=== PATIENT | female | born 1950 | race Caucasian/White ===

== ENCOUNTER 2017-09-04 12:13 | Day surgery (SDC) | payer MEDICARE, OTHER ==
[~2017-09-04] VITALS: Ht 170.2 cm; Wt 62.4 kg
[~2017-09-04 12:13] MED LIST: ABAC300; ACYC400 PO; ALBU90OI INH; EPIN.3I IM; HYDACE5 PO; LEVO750 PO; LEVSOD75 PO; LEVSOD88 PO; Norco 5-325 Ta1 EACH PO; Norco 7.5-3251 EACH PO; PRED20 PO; RANI150 PO; VARE1; Ventolin Soln3 ML INH; Zofran4 MG PO
== END 2017-09-04 14:46 | disposition home or self-care (01) ==
LOC: ORSCSDS 12:13
PROVIDERS: Surgery
PROC: 0DBH8ZX Excision of Cecum, Via Natural or Artificial Opening Endoscopic, Diagnostic (ICD-10-PCS; principal; 2017-09-04 13:45)
PROC: 0DBK8ZX Excision of Ascending Colon, Via Natural or Artificial Opening Endoscopic, Diagnostic (ICD-10-PCS; principal; 2017-09-04 13:45)
DX: Z12.11 Encounter for screening for malignant neoplasm of colon (principal); D12.0 Benign neoplasm of cecum; D12.2 Benign neoplasm of ascending colon; K57.30 Diverticulosis of large intestine without perforation or abscess without bleeding; E03.9 Hypothyroidism, unspecified; Z87.891 Personal history of nicotine dependence; Z79.899 Other long term (current) drug therapy
CPT/HCPCS: 88305; J7120

== ENCOUNTER 2018-01-14 00:14 | Emergency (ER) | payer MEDICARE, OTHER ==
[~2018-01-14] VITALS: Ht 170.2 cm; Wt 62.6 kg
== END 2018-01-14 02:23 | disposition home or self-care (01) ==
LOC: ER 00:14
DX: L50.9 Urticaria, unspecified (principal); F17.200 Nicotine dependence, unspecified, uncomplicated; Z88.5 Allergy status to narcotic agent; Z79.899 Other long term (current) drug therapy
CPT/HCPCS: 99283; J1100

== ENCOUNTER 2020-10-02 11:45 | Emergency (ER) | payer MEDICARE, OTHER ==
[~2020-10-02] VITALS: Ht 170.2 cm; Wt 60.3 kg
[2020-10-02] MEDS ORDERED: Mupirocin22 GM TOP (15:00)
== END 2020-10-02 15:11 | disposition home or self-care (01) ==
LOC: ER 11:45
DX: L03.011 Cellulitis of right finger (principal); F17.200 Nicotine dependence, unspecified, uncomplicated; Z88.5 Allergy status to narcotic agent; Z79.899 Other long term (current) drug therapy
CPT/HCPCS: 99282

== ENCOUNTER → 2021-05-04 | Outpatient (CLI) | payer MEDICARE, OTHER ==
[~2021-05-04] MED LIST changes: +Mupirocin22 GM TOP
== END ==
LOC: LAB SHORT 11:05 → LAB 11:05
DX: D48.5 Neoplasm of uncertain behavior of skin (principal); Z88.5 Allergy status to narcotic agent
CPT/HCPCS: 88305

== ENCOUNTER → 2021-06-10 | Outpatient (CLI) | payer MEDICARE, OTHER | LOC: LAB 14:53 → LAB SHORT 14:53 | DX: C44.729 Squamous cell carcinoma of skin of left lower limb, including hip (principal) | CPT/HCPCS: 88305 ==

== ENCOUNTER → 2021-11-26 | Outpatient (CLI) | payer MEDICARE, OTHER | END | disposition home or self-care (01) | LOC: LAB 14:08 → LAB SHORT 14:08 | DX: R05.9 Cough, unspecified (principal) | CPT/HCPCS: 83880 ==

== ENCOUNTER 2023-08-04 06:32 | Emergency (ER) | payer MEDICARE, OTHER ==
[~2023-08-04] VITALS: Ht 170.2 cm; Wt 55.3 kg
[2023-08-04 08:12] LABS: BASOPHILS ABSOLUTE AUTO 0.09 K/mm3 (0.00-0.23); BASOPHILS PERCENT AUTO 1 % (0-2); EOSINOPHILS ABSOLUTE AUTO 0.02 K/mm3 (0.00-0.68); EOSINOPHILS PERCENT AUTO 0 % (0-6); Hematocrit 43.7 % (33.0-51.0); Hemoglobin 14.7 g/dL (11.5-16.0); IMMATURE GRAN ABSOLUTE AUTO 0.02 K/mm3 (0.00-0.10); IMMATURE GRAN PERCENT AUTO 0 % (0-1); LYMPHOCYTES ABSOLUTE AUTO 0.67 K/mm3 (0.84-5.20); LYMPHOCYTES PERCENT AUTO 9 % (21-46); MONOCYTES ABSOLUTE AUTO 1.21 K/mm3 (0.16-1.47); MONOCYTES PERCENT AUTO 16 % (4-13); Mean Corpuscular HGB Conc 33.6 g/dL (31.5-36.5); Mean Corpuscular Volume 95 fL (80-100); Mean Platelet Volume 8.7 fL (9.1-12.4); NEUTROPHILS ABSOLUTE AUTO 5.51 K/mm3 (1.96-9.15); NEUTROPHILS PERCENT AUTO 73 % (41-73); Platelet Count 262 K/mm3 (150-400); RDW Coefficient Variation 13.3 % (11.7-14.2); RDW Standard Deviation 47.5 fL (35.1-46.3); Red Blood Cell Count 4.59 M/mm3 (3.80-5.20); White Blood Cell Count 7.52 K/mm3 (4.00-11.30)
[2023-08-04 08:44] LABS: Albumin, Blood 3.9 g/dL (3.4-5.0); Albumin/Globulin Ratio 1.1 (0.8-1.8); Bilirubin, Total 0.5 mg/dL (0.1-1.0); Bun/Creatinine Ratio 22.8 (12.0-20.0); Calcium, Blood 8.9 mg/dL (8.5-10.1); Creatinine, Blood 0.75 mg/dL (0.40-1.00); Globulin, Blood 3.5 g/dL (2.2-4.0); Potassium, Blood 4.3 mmol/L (3.5-5.5); Total Protein, Blood 7.4 g/dL (6.4-8.2)
[2023-08-04 09:15] VITALS: BP 125/65
[2023-08-04] MEDS ORDERED: LISI20 PO (16:34)
== END 2023-08-04 09:16 | disposition home or self-care (01) ==
LOC: ER 06:32
PROVIDERS: Physician Assistant
DX: J44.1 Chronic obstructive pulmonary disease with (acute) exacerbation (principal); F45.21 Hypochondriasis; I10 Essential (primary) hypertension; E03.9 Hypothyroidism, unspecified; F17.200 Nicotine dependence, unspecified, uncomplicated; Z79.899 Other long term (current) drug therapy; Z88.5 Allergy status to narcotic agent
CPT/HCPCS: 71046; 80053; 85025; 99283-25

== ENCOUNTER 2023-08-04 16:11 | Inpatient (IN) | payer MEDICARE, OTHER ==
[~2023-08-04] VITALS: Ht 162.6 cm; Wt 59.2 kg
[2023-08-04 16:29] LABS: Base Excess Venous 0.6 mmol/L; Bicarbonate Venous 23.6 mmol/L (24.0-30.0); PCO2 Venous 48.5 mmHg (38-42); pH Blood Venous 7.34 (7.34-7.37)
[2023-08-04] MEDS ORDERED: LISI20 PO (16:34)
[2023-08-04 17:21] LABS: Influenza A, PCR NEGATIVE (NEGATIVE); Influenza B, PCR NEGATIVE (NEGATIVE); SARS-Cov-2 (COVID-19) PCR, MMC NEGATIVE (NEGATIVE)
[2023-08-04 17:45] LABS: Resp Syncytial Virus, PCR POSITIVE (NEGATIVE)
[2023-08-04 21:01] VITALS: BP 123/101
[2023-08-04 23:29] VITALS: BP 167/126
--- NOTE | 2023-08-05 00:09 | NUR ---
LATE NOTE. PT ARRIVED ON UNIT @ 2029. AOX4, PLEASANT, COOPERATIVE WITH CARE. STRONG/STEADY GAIT WITH SAFE INDEPENDENT TRANSFER WITHIN ROOM. 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 WAS SATURATING WELL ON 3.5 L 02 VIA NC UPON ARRIVAL. MAINTAINED AT THIS STATE UNTIL ABOUT ~2345 WHEN PT STARTED TO COMPLAIN OF INCREASING SOB. DESATURATED INTO MID 80s. CALLED RT TANIKA WHO PLACED PT ON BIPAP ON "BASIC SETTINGS". SINCE THAT TIME PT HAS BEEN MAINTAINING SATURATIONS >92% AND IS RESTING COMFORTABLY IN BED. RSV POSITIVE, CONTACT PRECAUTIONS IN PLACE. ADMISSION ASSESSMENT, MEDICATION RECONCILIATION COMPLETED. BED LOCKED ON LOWEST POSITION. CALL LIGHT HAS BEEN LEFT WITHIN REACH AND PT HAS BEEN USING APPROPRIATELY THUS FAR. CONTINUING TO MONITOR.
[2023-08-05 04:22] LABS: BASOPHILS ABSOLUTE AUTO 0.03 K/mm3 (0.00-0.23); BASOPHILS PERCENT AUTO 0 % (0-2); EOSINOPHILS PERCENT AUTO 0 % (0-6); Hematocrit 38.8 % (33.0-51.0); Hemoglobin 13.2 g/dL (11.5-16.0); IMMATURE GRAN ABSOLUTE AUTO 0.03 K/mm3 (0.00-0.10); IMMATURE GRAN PERCENT AUTO 0 % (0-1); LYMPHOCYTES ABSOLUTE AUTO 0.49 K/mm3 (0.84-5.20); LYMPHOCYTES PERCENT AUTO 5 % (21-46); MONOCYTES ABSOLUTE AUTO 0.33 K/mm3 (0.16-1.47); MONOCYTES PERCENT AUTO 3 % (4-13); Mean Corpuscular HGB 32.2 pg (26.0-34.0); Mean Corpuscular Volume 95 fL (80-100); Mean Platelet Volume 8.8 fL (9.1-12.4); NEUTROPHILS ABSOLUTE AUTO 8.89 K/mm3 (1.96-9.15); NEUTROPHILS PERCENT AUTO 91 % (41-73); Platelet Count 228 K/mm3 (150-400); RDW Coefficient Variation 13.3 % (11.7-14.2); White Blood Cell Count 9.77 K/mm3 (4.00-11.30)
[2023-08-05 04:43] LABS: Albumin, Blood 3.5 g/dL (3.4-5.0); Bilirubin, Total 0.4 mg/dL (0.1-1.0); Bun/Creatinine Ratio 28.8 (12.0-20.0); Calcium, Blood 8.9 mg/dL (8.5-10.1); Creatinine, Blood 0.76 mg/dL (0.40-1.00); Globulin, Blood 3.4 g/dL (2.2-4.0); Potassium, Blood 4.6 mmol/L (3.5-5.5); Total Protein, Blood 6.9 g/dL (6.4-8.2)
[2023-08-05 04:48] VITALS: BP 109/80
--- NOTE | 2023-08-05 06:35 | NUR ---
SHIFT SUMMARY. PT HAS BEEN ON NC FOR PAST SEVERAL HOURS. NOW ON 7 L O2 VIA NC AND HAS BEEN MAINTAINING SATS >92% FOR THE MOST PART OUTSIDE OF COUGHING FITS AND AMBULATION. CALLS APPROPRIATELY FOR ASSISTANCE. PT COMPLAINED OF NECK/SHOULDER PAIN THIS MORNING RELATED TO COUGHING FITS. CALLED RESIDENT WHO ORDERED ONE TIME DOSE OF FENTANYL 25 MCG. ADMINISTERED AND PT REPORTS PAIN HAS BEEN MUCH BETTER SINCE. SPUTUM SAMPLE COLLECTED AND TO BE PROCESSED AND SENT TO LAB FOR ANALYSIS. BED IS LOCKED IN LOWEST POSITION. CALL LIGHT LEFT WITHIN REACH. CONTINUING TO MONITOR.
[2023-08-05 07:14] VITALS: BP 100/77
--- NOTE | 2023-08-05 07:34 | NUR ---
CARE OF PT ASSUMED AT 0700. JUST PRIOR TO BEDSIDE REPORT PT USED CALL LIGHT TO C/O SOB. AT BEDSIDE PT RESP 30'S, SHALLOW, LABORED. LUNGS CLEAR BUT TIGHT/DIMINISHED T/O, WORSE TO LEFT SIDE. RT CALLED, PT PLACED TO CPAP 10, 40% FIO2. RT STARTED UDN TREATMENT THROUGH CPAP. PT SATS >90%, PT STATED SHE COULD BREATH BETTER AFTER 5MIN, APPEARS MORE RELAXED.
[2023-08-05 08:29] VITALS: BP 135/70
--- NOTE | 2023-08-05 08:37 | NUR ---
BURDEN IN TO SEE PT, FULL UPDATE GIVEN. DIET ORDERED.
[2023-08-05 11:38] VITALS: BP 130/65
[2023-08-05 16:34] VITALS: BP 127/66
--- NOTE | 2023-08-05 18:55 | NUR ---
PT HAS IMPROVED SLIGHTLY OVER SHIFT. PT REQUIRES N/C AT 7L TO KEEP SATS BETWEEN 90-93%. PT HAS REQUIRED CPAP 10 40% SEVERAL TIMES THIS SHIFT AND WHILE SLEEPING. PT ROCÍO CPAP WELL. PT ABLE TO TAKE LONG BREAKS UP TO 2HRS OFF OF CPAP, PT ABLE TO EAT AND VISIT. PT DOES HAVE TACHYPNEA AND DYSPNEA WITH PROLONGED SPEECH.
[2023-08-05 19:28] VITALS: BP 131/103
[2023-08-06] VITALS (7 sets, daily range): BP systolic 111–147; BP diastolic 52–89
[2023-08-06 04:01] LABS: BASOPHILS ABSOLUTE AUTO 0.04 K/mm3 (0.00-0.23); BASOPHILS PERCENT AUTO 0 % (0-2); EOSINOPHILS ABSOLUTE AUTO 0.04 K/mm3 (0.00-0.68); EOSINOPHILS PERCENT AUTO 0 % (0-6); Hematocrit 38.4 % (33.0-51.0); Hemoglobin 12.7 g/dL (11.5-16.0); IMMATURE GRAN ABSOLUTE AUTO 0.13 K/mm3 (0.00-0.10); IMMATURE GRAN PERCENT AUTO 1 % (0-1); LYMPHOCYTES ABSOLUTE AUTO 0.93 K/mm3 (0.84-5.20); LYMPHOCYTES PERCENT AUTO 5 % (21-46); MONOCYTES ABSOLUTE AUTO 1.16 K/mm3 (0.16-1.47); MONOCYTES PERCENT AUTO 6 % (4-13); Mean Corpuscular HGB 31.7 pg (26.0-34.0); Mean Corpuscular HGB Conc 33.1 g/dL (31.5-36.5); Mean Corpuscular Volume 96 fL (80-100); NEUTROPHILS ABSOLUTE AUTO 17.42 K/mm3 (1.96-9.15); NEUTROPHILS PERCENT AUTO 88 % (41-73); Platelet Count 224 K/mm3 (150-400); RDW Coefficient Variation 13.3 % (11.7-14.2); RDW Standard Deviation 47.5 fL (35.1-46.3); Red Blood Cell Count 4.01 M/mm3 (3.80-5.20); White Blood Cell Count 19.72 K/mm3 (4.00-11.30)
[2023-08-06 04:24] LABS: Albumin, Blood 3.5 g/dL (3.4-5.0); Anion Gap 3 mmol/L (6-16); Blood Urea Nitrogen 25 mg/dL (8-24); Bun/Creatinine Ratio 33.2 (12.0-20.0); CO2, Blood 29 mmol/L (21-32); Calcium, Blood 8.9 mg/dL (8.5-10.1); Chloride, Blood 102 mmol/L (98-108); Creatinine, Blood 0.75 mg/dL (0.40-1.00); Glomerular Filtration Rate 84 (60-); Glucose, Blood 144 mg/dL (70-99); Phosphorus, Blood 3.6 mg/dL (2.5-4.9); Potassium, Blood 4.7 mmol/L (3.5-5.5); Sodium, Blood 134 mmol/L (136-145)
--- NOTE | 2023-08-06 04:39 | NUR ---
SHIFT SUMMARY. PT HAS BEEN DOING WELL THIS SHIFT, NO ACUTE CHANGES. REMAINS AOX4, PLEASANT, COOPERATIVE WITH CARE. PT WAS EXPERIENCING SOME ANXIETY EARLY IN SHIFT RELATED TO CPAP AND BEING UNABLE TO SLEEP. NOTIFIED RESIDENT WHO ORDERED ONE TIME DOSE OF 100 MG TRAZADONE AND PT HAS BEEN ABLE TO SLEEP THROUGH MOST OF SHIFT SINCE. EASILY AROUSABLE FOR CARE AND QUICKLY FALLS BACK TO SLEEP. HAS BEEN MAINTAINING SATURATIONS ON CPAP >92% THROUGHOUT EVENING AND MORNING. NO PAIN REPORTED THIS SHIFT. INDEPENDENT TO COMMODE AND CALLS APPROPRIATELY FOR ANY REQUIRED ASSISTANCE. ABLE TO MAKE NEEDS KNOWN. TELE ON THROUGHOUT SHIFT AND HAS BEEN RUNNING SINUS RHYTHM WITH NO EVENTS THUS FAR. BEC LOCKED IN LOWEST POSITION. CALL LIGHT LEFT WITHIN REACH.
--- NOTE | 2023-08-06 17:53 | NUR ---
SHIFT SUMMARY PT IS A&OX4, IND IN THE ROOM, SR ON TELE, BP STABLE, AND SHE CALLS APPROPRAITELY. SHE HAS BEEN ON 4L NC ALL SHIFT, AND WHEN SHE TOOK A NAP FOR AN HOUR SHE WAS ON 5L NC. THE PT HAS HAD NO COMPLAINTS OR EVENTS THIS SHIFT. FIRE IGNITION RISK HAS BEEN ASSESSED AND HER WAS UPDATED ON HER CARE. SEE NOTED FORE ANYMORE UPDATES.
--- NOTE | 2023-08-06 21:59 | NUR ---
ASSUMPTION OF CARE AFTER RECEIVING REPORT FROM MELITA RN, THIS RN ASSUMED CARE AT APPROX 1915. PATIENT IS ALERT AND ORIENTED X4. INDEPENDENT IN ROOM, USES CALL LIGHT APPROPRIATELY TO COMMUNICATE NEEDS. TELEMETRY SHOWING SINUS, SINUS TACH 90's-110's. BP MILDLY ELEVATED THIS EVENING, SBP 140's. DENIES CHEST PAIN, PRESSURE. IS CURRENTLY ON 4L VIA NASAL CANNULA, SATS >90%. EXPERIENCES DYSPNEA WITH MOBILITY, EASES WITH REST. OCCASSIONAL, NONPRODUCTIVE COUGH NOTED. DISCUSSED WITH RT, PLAN TO IMPLEMENT CPAP NEEDED WHILE SLEEPING. CALL LIGHT IN REACH.
[2023-08-07 03:48] VITALS: BP 137/72
[2023-08-07 04:41] LABS: BASOPHILS ABSOLUTE AUTO 0.02 K/mm3 (0.00-0.23); BASOPHILS PERCENT AUTO 0 % (0-2); EOSINOPHILS PERCENT AUTO 0 % (0-6); IMMATURE GRAN PERCENT AUTO 1 % (0-1); LYMPHOCYTES ABSOLUTE AUTO 1.28 K/mm3 (0.84-5.20); LYMPHOCYTES PERCENT AUTO 6 % (21-46); MONOCYTES ABSOLUTE AUTO 1.34 K/mm3 (0.16-1.47); MONOCYTES PERCENT AUTO 6 % (4-13); Mean Corpuscular HGB 32.5 pg (26.0-34.0); Mean Corpuscular HGB Conc 34.2 g/dL (31.5-36.5); Mean Corpuscular Volume 95 fL (80-100); NEUTROPHILS ABSOLUTE AUTO 18.26 K/mm3 (1.96-9.15); NEUTROPHILS PERCENT AUTO 87 % (41-73); Platelet Count 224 K/mm3 (150-400); RDW Coefficient Variation 13.2 % (11.7-14.2); RDW Standard Deviation 46.6 fL (35.1-46.3)
--- NOTE | 2023-08-07 04:50 | NUR ---
SHIFT SUMMARY NO ACUTE CHANGES SINCE ASSUMPTION OF CARE NOTE. PATIENT SLEPT THROUGHOUT SHIFT, REMAINS EASILY AROUSABLE TO VERBAL STIMULI. REPORTS FEELING "SO MUCH BETTER TODAY." TELEMETRY SHOWING SINUS 80's-90's. BP STABLE. TOLERATED 4L VIA NASAL CANNULA THROUGHOUT THE NIGHT, WHILE SLEEPING. SATS REMAIN >90%. OCCASSIONAL PRODUCTIVE COUGH NOTED, PATIENT REPORTING THAT SHE IS "FINALLY COUGHING UP THAT STUFF." REMAINS INDEPENDENT IN ROOM. VOIDING. NO BM THIS SHIFT. CALL LIGHT IN REACH. WILL REPORT TO ONCOMING RN.
[2023-08-07 05:11] LABS: Albumin, Blood 3.6 g/dL (3.4-5.0); Anion Gap 4 mmol/L (6-16); Blood Urea Nitrogen 29 mg/dL (8-24); Bun/Creatinine Ratio 41.4 (12.0-20.0); CO2, Blood 28 mmol/L (21-32); Calcium, Blood 8.8 mg/dL (8.5-10.1); Chloride, Blood 102 mmol/L (98-108); Glomerular Filtration Rate 91 (60-); Glucose, Blood 149 mg/dL (70-99); Phosphorus, Blood 3.6 mg/dL (2.5-4.9); Potassium, Blood 4.5 mmol/L (3.5-5.5); Sodium, Blood 134 mmol/L (136-145)
[2023-08-07 07:21] VITALS: BP 144/77
--- NOTE | 2023-08-07 07:56 | NUR ---
Am note Pt alert, oriented x4; calm and cooperative with care. Pt up ind in room, walking to bathroom ind. Pt reports pain to lower rib cage/upper abd, worse while coughing. Pt reports sob with activity, spo2 >90% on 4.5l o2 via nc, ls tights, dim bases. Pt denies chest pain/pressure, nasuea, dizziness and numb/tingling. Tele sinus/sinus tach 90-100's, bp elevated. Abd soft nontender on palp, +bt t/o, pt reprots last bm 08/06/22. No edema noted. No other acute chagnes. Will continue to monitor.
[2023-08-07 15:30] VITALS: BP 137/64
--- NOTE | 2023-08-07 18:27 | NUR ---
Shift Summary Pt titrated down to ra while at rest, on 1l o2 via nc with activity. No other acute changes noted. Will continue to monitor.
[2023-08-07 19:28] VITALS: BP 156/84
--- NOTE | 2023-08-07 20:02 | NUR ---
ASSUMPTION OF CARE AFTER RECEIVING REPORT FROM WIL STAHL, THIS RN ASSUMED CARE AT APPROX 1915. DURING INITIAL ENCOUNTER, PATIENT SITTING UP ON SIDE OF BED. IS ALERT AND ORIENTED X4. INDEPENDENT IN ROOM. RECEPTIVE TO EDUCATION, COOPERATIVE WITH CARE. IS MEDICAL STATUS WITH TELEMETRY. TELEMETRY SHOWING SINUS, SINUS TACH 90's-100's. BP ELEVATED THIS EVENING, SBP 150's. DENIES CHEST PAIN, PRESSURE. WHILE SITTING ON SIDE OF BED, PATIENT ON ROOM AIR, SATS 90-94%. NO SHORTNESS OF BREATH AT REST NOTED. PATIENT DOES EXPERIENCE SHORTNESS OF BREATH, TACHYPNEA WITH MOBILITY. SATS 85-89%. USES 1L VIA NASAL CANNULA FOR RESCUE. PATIENT ABLE TO MANAGE NASAL CANNULA USE INDEPENDENTLY. WILL MONITOR THROUGHOUT SHIFT FOR OXYGEN REQUIREMENT WHILE SLEEPING VIA PULSE OXIMETRY. UP TO RESTROOM. VOIDING. CALL LIGHT IN REACH.
[2023-08-08] VITALS (16 sets, daily range): BP systolic 126–179; BP diastolic 61–90
--- NOTE | 2023-08-08 03:34 | NUR ---
UPDATE THIS RN TO BEDSIDE TO OBTAIN MORNING VITALS. PATIENT ALERT, USING RESTROOM. REPORTS FEELING INCREASINGLY SHORT OF BREATH. REQUESTING BREATHING TREATMENT. VITAL SIGNS OBTAINED. BP ELEVATED, SBP 170's-180's. PATIENT REPORTS CHEST PAIN RELATED TO FREQUENT COUGH. DISCUSSED WITH MANAGER BIOLOGICS, AMANDA. NO CHANGES TO RHYTHM, SHOWING SINUS, SINUS TACH 90's-100's. MD HEATH CONTACTED WITH UPDATE. RECEIVED ORDER FOR IV HYDRALAZINE. ORDER NOW IN PLACE. WILL ADMINISTER PER EMAR, WITH PROVIDED PARAMETERS. RT CONTACTED FOR BREATHING TREATMENT.
[2023-08-08 04:10] LABS: BASOPHILS ABSOLUTE AUTO 0.02 K/mm3 (0.00-0.23); BASOPHILS PERCENT AUTO 0 % (0-2); EOSINOPHILS PERCENT AUTO 0 % (0-6); Hematocrit 38.4 % (33.0-51.0); Hemoglobin 13.1 g/dL (11.5-16.0); IMMATURE GRAN ABSOLUTE AUTO 0.05 K/mm3 (0.00-0.10); IMMATURE GRAN PERCENT AUTO 0 % (0-1); LYMPHOCYTES ABSOLUTE AUTO 2.69 K/mm3 (0.84-5.20); LYMPHOCYTES PERCENT AUTO 16 % (21-46); MONOCYTES ABSOLUTE AUTO 1.64 K/mm3 (0.16-1.47); MONOCYTES PERCENT AUTO 10 % (4-13); Mean Corpuscular HGB Conc 34.1 g/dL (31.5-36.5); Mean Corpuscular Volume 94 fL (80-100); Mean Platelet Volume 9.2 fL (9.1-12.4); NEUTROPHILS ABSOLUTE AUTO 12.09 K/mm3 (1.96-9.15); NEUTROPHILS PERCENT AUTO 73 % (41-73); Platelet Count 252 K/mm3 (150-400); RDW Coefficient Variation 13.1 % (11.7-14.2); RDW Standard Deviation 45.1 fL (35.1-46.3); Red Blood Cell Count 4.09 M/mm3 (3.80-5.20); White Blood Cell Count 16.49 K/mm3 (4.00-11.30)
--- NOTE | 2023-08-08 04:48 | NUR ---
SHIFT SUMMARY NO ACUTE CHANGES SINCE PREVIOUS NOTES. PATIENT SLEPT INTERMITTENTLY THROUGHOUT SHIFT, EASILY AROUSABLE TO VERBAL STIMULI. REMAINS INDEPENDENT IN ROOM. TELEMETRY SHOWING SINUS 90's. SBP 150's SINCE IV HYDRALAZINE ADMINISTRATION. PLACED ON 2L VIA NASAL CANNULA WHILE SLEEPING DID DESAT TO 85-88%. TOLERATING 1L WHILE AWAKE, SATS 88-90%. REPORTS SOME RELIEF FROM COUGHING, SHORTNESS OF BREATH WITH ADMINISTERED BREATHING TREATMENT. FREQUENT PRODUCTIVE COUGH NOTED THIS MORNING. VOIDING. CALL LIGHT IN REACH. WILL REPORT TO ONCOMING RN.
[2023-08-08 05:01] LABS: Bun/Creatinine Ratio 36.1 (12.0-20.0); Calcium, Blood 8.8 mg/dL (8.5-10.1); Creatinine, Blood 0.72 mg/dL (0.40-1.00); Potassium, Blood 4.6 mmol/L (3.5-5.5)
--- NOTE | 2023-08-08 06:26 | NUR ---
ELEVATED BLOOD PRESSURE PATIENT's BLOOD PRESSURE DECREASED SBP 150's FOLLOWING IV HYDRALAZINE ADMINISTRATION PER EMAR. BLOOD PRESSURE HAS SINCE INCREASED SBP 170's. RN ABLE TO ADMINISTER NEXT DOSE OF IV HYDRALAZINE AT 0745 PER ORDER. PATIENT ALSO TO RECEIVE SCHEDULED LISINOPRIL THIS MORNING. DISCUSSED WITH BRANCH MECHANIC ANTONETTE. NOT CONTACTED AT THIS TIME. WILL REPORT TO ONCOMING RN.
--- NOTE | 2023-08-08 09:13 | NUR ---
Am note Pt alert, oriented x4; calm and cooperative with care. Pt up ind in room, walking to bathroom, pacing room. Pt reports headache and rib pain with coughing. Pt deneis chest pain/pressure, nausea, dizziness and numb/tingling. Spo2 >90% on ra while at rest, pt using 1l o2 via nc for rescue. Tele sinus 90's, bp elevated this am, trending down. Pt abd soft, nontender, +bt t/o. No edema noted. Other vss. No other acute changes noted. Will continue to monitor.
[2023-08-08] MEDS ORDERED: DELTASONE20 MG PO (12:47)
[2023-08-08] MEDS ORDERED: ALBU90OI INH (12:48)
--- NOTE | 2023-08-08 18:07 | NUR ---
SHIFT SUMMARY PT HAS ELEVATED BP T/O SHIFT, DR MYRICK NOTIFIED T/O SHIFT, NEW ORDERS FOR ADDITIONAL LISINOPRIL THIS AFTERNOON, AND NORVASC THIS EVENING. PT REPORTS HEADACHE, MEDICATED WITH TYLENOL; AWARE. PLANS THIS AM TO DISCHARGE, BUT STAYING ADDITIONAL NIGHT FOR HYPERTENSION. OTHER VSS. NO OTHER ACUTE CHANGES NOTED. WILL CONTINUE TO MONITOR.
--- NOTE | 2023-08-09 01:29 | NUR ---
ASSUMPTION OF CARE AFTER RECEIVING REPORT FROM WIL STAHL, THIS RN ASSUMED CARE AT APPROX 1915. PATIENT SLEEPING DURING INTIAL ENCOUNTER, EASILY AROUSABLE TO VERBAL STIMULI. IS ALERT AND ORIENTED X4. INDEPENDENT IN ROOM. TELEMETRY SHOWING SINUS 70's. BP STABLE, SBP 120's. DENIES CHEST PAIN, PRESSURE. IS ON ROOM AIR, SATS 90-94%. HOME O2 EVAL PERFORMED 08/08/23. PATIENT REPORTS THAT SHORTNESS OF BREATH, COUGH IS IMPROVING. USES CALL LIGHT APPROPRIATELY, WITHIN REACH.
[2023-08-09 04:57] VITALS: BP 152/78
[2023-08-09 05:41] LABS: BASOPHILS ABSOLUTE AUTO 0.01 K/mm3 (0.00-0.23); BASOPHILS PERCENT AUTO 0 % (0-2); EOSINOPHILS ABSOLUTE AUTO 0.01 K/mm3 (0.00-0.68); EOSINOPHILS PERCENT AUTO 0 % (0-6); Hematocrit 36.9 % (33.0-51.0); Hemoglobin 12.9 g/dL (11.5-16.0); IMMATURE GRAN ABSOLUTE AUTO 0.05 K/mm3 (0.00-0.10); IMMATURE GRAN PERCENT AUTO 1 % (0-1); LYMPHOCYTES ABSOLUTE AUTO 3.62 K/mm3 (0.84-5.20); LYMPHOCYTES PERCENT AUTO 34 % (21-46); MONOCYTES ABSOLUTE AUTO 1.47 K/mm3 (0.16-1.47); MONOCYTES PERCENT AUTO 14 % (4-13); Mean Corpuscular HGB 32.3 pg (26.0-34.0); Mean Corpuscular Volume 93 fL (80-100); Mean Platelet Volume 9.3 fL (9.1-12.4); NEUTROPHILS ABSOLUTE AUTO 5.47 K/mm3 (1.96-9.15); NEUTROPHILS PERCENT AUTO 51 % (41-73); Platelet Count 259 K/mm3 (150-400); RDW Coefficient Variation 12.9 % (11.7-14.2); RDW Standard Deviation 44.1 fL (35.1-46.3); Red Blood Cell Count 3.99 M/mm3 (3.80-5.20); White Blood Cell Count 10.63 K/mm3 (4.00-11.30)
--- NOTE | 2023-08-09 05:43 | NUR ---
SHIFT SUMMARY NO ACUTE CHANGES SINCE ASSUMPTION OF CARE NOTE. PATIENT SLEPT THROUGHOUT SHIFT, EASILY AROUSABLE TO VERBAL STIMULI. REMAINS INDEPENDENT IN ROOM. TELEMETRY SHOWING SINUS 70's. BP STABLE, SBP 120's-150's. REMAINS ON ROOM AIR THROUGHOUT, SATS 89-92%. VOIDING. NO BM THIS SHIFT. CALL LIGHT IN REACH. WILL REPORT TO ONCOMING RN.
[2023-08-09 06:31] LABS: Bun/Creatinine Ratio 25.3 (12.0-20.0); Calcium, Blood 8.8 mg/dL (8.5-10.1); Creatinine, Blood 0.71 mg/dL (0.40-1.00)
[2023-08-09 08:04] VITALS: BP 144/102
[2023-08-09] MEDS ORDERED: AMLO5 PO (08:27)
--- NOTE | 2023-08-09 09:41 | NUR ---
DISCHARGE SUMMARY PT DISCHARGED TO HOME. PT LEFT ROOM AT 0920. ALL DISCHARGE INSTRUCTIONS DISCUSSED WITH PATIENT. PT AGREES TO TAKE MEDICATIONS PRESCRIBED AND TO FOLLOW UP WITH PCP ORDERED. ALL QUESTIONS ANSWERED. IV REMOVED AND BELONGINGS RETURNED. PT EAGER TO BE DISCHARGED HOME.
== END 2023-08-09 09:21 | disposition home or self-care (01) | DRG 193 ==
LOC: ER 16:11 → PCU 18:17
PROVIDERS: Emergency Medicine; Family Medicine; Internal Medicine; ADMIT Internal Medicine
PROC: 5A09357 Assistance with Respiratory Ventilation, Less than 24 Consecutive Hours, Continuous Positive Airway Pressure (ICD-10-PCS; principal; 2023-08-04)
DX: J12.1 Respiratory syncytial virus pneumonia (principal); J96.01 Acute respiratory failure with hypoxia; J44.0 Chronic obstructive pulmonary disease with (acute) lower respiratory infection; J44.1 Chronic obstructive pulmonary disease with (acute) exacerbation; Z94.81 Bone marrow transplant status; I16.0 Hypertensive urgency; I10 Essential (primary) hypertension; E03.9 Hypothyroidism, unspecified; F17.210 Nicotine dependence, cigarettes, uncomplicated; Z85.72 Personal history of non-Hodgkin lymphomas; Z88.5 Allergy status to narcotic agent; Z79.890 Hormone replacement therapy; Z11.52 Encounter for screening for COVID-19; Z79.899 Other long term (current) drug therapy
CPT/HCPCS: 0241U; 36415; 71045; 71046; 80048; 80053; 80069; 82803; 83880; 85025; 87070; 87205; 93005; 93010; 94640; 94660; 94664; 94761; 94762; 96365; 96372; 96375; 99283-25; 99285-25; A9270; J0360; J0456; J1650; J2930; J3010; J7050; J7512

== ENCOUNTER 2023-08-15 16:15 | Emergency (ER) | payer MEDICARE, OTHER ==
[~2023-08-15] VITALS: Ht 170.2 cm; Wt 51.3 kg
[~2023-08-15 16:15] MED LIST changes: +AMLO5 PO; +DELTASONE20 MG PO; +LISI20 PO
[2023-08-15 16:50] LABS: BASOPHILS ABSOLUTE AUTO 0.05 K/mm3 (0.00-0.23); BASOPHILS PERCENT AUTO 1 % (0-2); EOSINOPHILS ABSOLUTE AUTO 0.14 K/mm3 (0.00-0.68); EOSINOPHILS PERCENT AUTO 2 % (0-6); Hematocrit 40.6 % (33.0-51.0); Hemoglobin 13.6 g/dL (11.5-16.0); IMMATURE GRAN ABSOLUTE AUTO 0.04 K/mm3 (0.00-0.10); IMMATURE GRAN PERCENT AUTO 0 % (0-1); LYMPHOCYTES ABSOLUTE AUTO 2.35 K/mm3 (0.84-5.20); LYMPHOCYTES PERCENT AUTO 25 % (21-46); MONOCYTES ABSOLUTE AUTO 1.26 K/mm3 (0.16-1.47); MONOCYTES PERCENT AUTO 13 % (4-13); Mean Corpuscular HGB 31.9 pg (26.0-34.0); Mean Corpuscular HGB Conc 33.5 g/dL (31.5-36.5); Mean Corpuscular Volume 95 fL (80-100); Mean Platelet Volume 8.4 fL (9.1-12.4); NEUTROPHILS ABSOLUTE AUTO 5.66 K/mm3 (1.96-9.15); NEUTROPHILS PERCENT AUTO 60 % (41-73); Platelet Count 412 K/mm3 (150-400); RDW Coefficient Variation 12.9 % (11.7-14.2); RDW Standard Deviation 45.3 fL (35.1-46.3); Red Blood Cell Count 4.26 M/mm3 (3.80-5.20)
[2023-08-15 17:22] LABS: Albumin, Blood 3.3 g/dL (3.4-5.0); Bilirubin, Total 0.6 mg/dL (0.1-1.0); Bun/Creatinine Ratio 29.4 (12.0-20.0); Calcium, Blood 8.5 mg/dL (8.5-10.1); Creatinine, Blood 1.53 mg/dL (0.40-1.00); Globulin, Blood 3.2 g/dL (2.2-4.0); Magnesium, Blood 2.5 mg/dL (1.6-2.4); Potassium, Blood 4.5 mmol/L (3.5-5.5); Total Protein, Blood 6.5 g/dL (6.4-8.2)
[2023-08-15 19:45] VITALS: BP 141/66
== END 2023-08-15 20:00 | disposition home or self-care (01) ==
LOC: ER 16:15
PROVIDERS: Physician Assistant
DX: I95.9 Hypotension, unspecified (principal); Z87.891 Personal history of nicotine dependence; E03.9 Hypothyroidism, unspecified; Z79.899 Other long term (current) drug therapy
CPT/HCPCS: 80053; 83735; 85025; 93005; 93010; 96360; 99285-25; J7030